=== PATIENT | female | born 1935 | race Caucasian/White ===

== ENCOUNTER 2016-10-05 16:47 | Observation (INO) | payer MEDICARE, BC ==
[2016-10-05 17:35] LABS: ABSOLUTE EOSINOPHILS # (AUTO) 0.1 10^3/uL (0.0-0.6); ABSOLUTE LYMPHOCYTES (AUTO) 1.3 10^3/uL (0.5-4.7); ABSOLUTE MONOCYTES (AUTO) 0.7 10^3/uL (0.1-1.4); ABSOLUTE NEUT (AUTO) 4.3 10^3/uL (1.7-8.2); BASOPHILS % (AUTO) 0.8 % (0-2); EOSINOPHILS % (AUTO) 1.8 % (0-6); HEMATOCRIT 37.9 % (36.0-47.0); HEMOGLOBIN 12.5 g/dL (12.0-15.5); HGB HCT DIFFERENCE -0.4; LYMPHOCYTES % (AUTO) 19.9 % (13-45); MEAN CORPUSCULAR HEMOGLOBIN 29.1 pg (27.0-33.4); MEAN CORPUSCULAR HGB CONC 32.9 g/dL (32.0-36.0); MEAN CORPUSCULAR VOLUME 88 fl (80-97); MONOCYTES % (AUTO) 10.7 % (3-13); RED BLOOD COUNT 4.28 10^6/uL (3.72-5.28); RED CELL DISTRIBUTION WIDTH 14.8 % (11.5-14.0); SEGMENTED NEUTROPHILS % (AUTO) 66.8 % (42-78); WHITE BLOOD COUNT 6.4 10^3/uL (4.0-10.5)
[2016-10-05 17:38] LABS: PARTIAL THROMBOPLASTIN TIME 25.9 SEC (23.5-35.8)
[2016-10-05 17:55] LABS: ALANINE AMINOTRANSFERASE 29 U/L (9-52); ALBUMIN 3.6 g/dL (3.5-5.0); ALKALINE PHOSPHATASE 76 U/L (38-126); ANION GAP 6 (5-19); ASPARTATE AMINO TRANSFERASE 26 U/L (14-36); BILIRUBIN,TOTAL 0.4 mg/dL (0.2-1.3); BLOOD UREA NITROGEN 18 mg/dL (7-20); CALCIUM 9.5 mg/dL (8.4-10.2); CARBON DIOXIDE 30 mmol/L (22-30); CHLORIDE 102 mmol/L (98-107); CREATINE KINASE 54 U/L (30-135); CREATININE RESULT 0.93 mg/dL (0.52-1.25); GLUCOSE 81 mg/dL (75-110); POTASSIUM 4.4 mmol/L (3.6-5.0); SODIUM 138.3 mmol/L (137-145); TOTAL PROTEIN 6.4 g/dL (6.3-8.2)
[2016-10-05 18:06] LABS: CREATINE KINASE MB 1.61 ng/mL (<4.55)
[2016-10-05 18:07] LABS: TROPONIN I < 0.012 ng/mL
--- NOTE | 2016-10-05 18:07 | ER Document Report ---
ED General - General Mode of Arrival: Wheelchair Information source: Relative - Daughter Cannot obtain history due to: Other - Primary progressive aphasia TRAVEL OUTSIDE OF THE [place] IN LAST 30 DAYS: No - HPI Patient complains to provider of: Weakness Onset: This morning Onset/Duration: Sudden, Persistent Associated symptoms: Slow to respond, Weakness <CHINMAY ERNANDEZ - Last Filed: 10/05/16 22:22> <FITZ BEARDEN - Last Filed: 10/10/16 13:16> - General Chief Complaint: Weakness Stated Complaint: WEAKNESS Notes: Patient is a 81-year-old female presenting to the emergency department accompanied by her daughter is concerned that the patient has become very weak and lethargic. Patient's daughter states that this began this morning when the patient was being helped to the restroom, the patient's legs "turned to Jell-O" and she went to the ground. Patient's daughter states that there was no injury because she was wearing a gait belt. 5 years ago, patient was diagnosed with primary progressive aphasia. 15 months ago, patient fell down the stairs and injured her kidneys, but there were no broken bones. Since then, the patient has not been able to live on her own, so she lives with patient's daughter. Patient is able to say yes and no with her hands. Patient makes the hand motion yes when asked if she has blurred vision. Patient's daughter states that the patient was recently treated for UTI approximately one month ago. (CHINMAY ERNANDEZ) - Related Data Allergies/Adverse Reactions: No Known Allergies Allergy (Unverified 05/08/16 17:03) Home Medications: Current Home Medications Albuterol Sulfate [Ventolin HFA MDI 18 GM] 2 puff IH Q4HP PRN 10/06/16 [History] Amlodipine Besylate [Norvasc 5 mg Tablet] 5 mg PO DAILY 10/06/16 [History] Aspirin [Adult Low Dose Aspirin EC] 81 mg PO DAILY 10/06/16 [History] Budesonide/Formoterol Fumarate [Symbicort HFA 160-4.5 mcg Inhaler 6 gm] 2 puff IH Q12 10/06/16 [History] Cetirizine HCl [Zyrtec 10 mg Tablet] 1 tab PO DAILY 10/06/16 [History] Citalopram Hydrobromide [Celexa 10 mg Tablet] 30 mg PO DAILY 10/06/16 [History] Mirabegron [Myrbetriq] 50 mg PO DAILY 10/06/16 [History] Telmisartan [Micardis 80 mg Tablet] 80 mg PO DAILY 10/06/16 [History] Past Medical History - General Information source: Patient, Relative - daughter, [facility] Records - Social History Smoking Status: Unknown if Ever Smoked Frequency of alcohol use: None Drug Abuse: None Lives with: Family Family History: Reviewed & Not Pertinent, Hypertension, Malignancy - Breast cancer - Past Medical History Cardiac Medical History: Reports: Hx Hypertension Pulmonary Medical History: Reports: Hx COPD Neurological Medical History: Reports: Other - Primary aggressive aphasia Past Surgical History: Reports: Hx Appendectomy, Hx Hysterectomy, Hx Tonsillectomy <CHINMAY ERNANDEZ - Last Filed: 10/05/16 22:22> Review of Systems - Review of Systems -: Yes ROS unobtainable due to patient's medical condition - Patient unable to speak due to primary progressive aphasia. <CHINMAY ERNANDEZ - Last Filed: 10/05/16 22:22> Physical Exam - General General appearance: Appears well, Alert - HEENT Head: Normocephalic, Atraumatic Eyes: Normal Pupils: PERRL - Respiratory Respiratory status: No respiratory distress Chest status: Nontender Breath sounds: Normal Chest palpation: Normal - Cardiovascular Rhythm: Regular Heart sounds: Normal auscultation Murmur: No - Abdominal Inspection: Normal Distension: No distension Bowel sounds: Normal Tenderness: Nontender Organomegaly: No organomegaly - Back Back: Normal, Nontender - Extremities General upper extremity: Normal inspection, Nontender, Normal color, Normal temperature General lower extremity: Nontender, Normal color. No: Normal strength, Normal weight bearing - Neurological Neuro grossly intact: No - Cannot track with eyes. Dx Primary Progressive Aphasia - 5 years ago. [place] Coma Scale Eye Opening: Spontaneous [place] Coma Scale Verbal: None - Consistent with diagnosis of Primary Aggressive Aphasia [place] Coma Scale Motor: Obeys Commands [place] Coma Scale Total: 11 Speech: Expressive aphasia Motor strength normal: LUE, RUE. No: LLE, RLE Additional motor exam normals: Equal olive grader - Psychological Associated symptoms: Normal affect, Normal mood - Skin Skin Temperature: Warm Skin Moisture: Dry Skin Color: Normal <CHINMAY ERNANDEZ - Last Filed: 10/05/16 22:22> Course - Laboratory Result Diagrams: 10/05/16 17:25 10/05/16 17:25 - Consults Sebastian Time consulted: 21:10 <CHINMAY ERNANDEZ - Last Filed: 10/05/16 22:22> - Laboratory Result Diagrams: 10/06/16 04:30 10/06/16 04:30 <FITZ BEARDEN - Last Filed: 10/10/16 13:16> - Re-evaluation Re-evalutation: 10/05/16 21:32 I personally performed the services described in the documentation, reviewed and edited the documentation which was dictated to my scribe in my presence, and it accurately records my words and actions. Patient presents to the emergency Department chief complaint of weakness. Daughter which cares for at home says she is able to get around on her own account with walker no difficulty up until today she could not move her legs and would've fallen if a window been there to catch her. She said she's not sure whether she's had a stroke or not patient has progressive aphasia which is been diagnosed by a neurologist but states that she's not had a CVA in the past. Patient is aphasic she has left lower extremity weakness slightly worse than right lower extremity weakness no other neurological deficits. Patient is unable to get up and walk like she has been able to in the past. CT is negative that she may have a TIA. She'll have a urinary tract infection which we've treated. Go ahead and admit her to the hospital further evaluation. (FITZ BEARDEN) - Vital Signs Vital signs: Temp Pulse Resp BP Pulse Ox 98.1 F 68 16 170/63 H 98 10/07/16 14:26 10/07/16 14:26 10/07/16 14:26 10/07/16 14:26 10/07/16 14:26 (CHINMAY ERNANDEZ) (FITZ BEARDEN) - Laboratory Laboratory results interpreted by me: 10/05/16 10/05/16 10/05/16 17:25 17:25 19:25 RDW 14.8 H Est GFR (Non-Af Amer) 58 L Ur Leukocyte Esterase MODERATE H Urine Ascorbic Acid 40 H (CHINMAY ERNANDEZ) (FITZ BEARDEN) - Consults Sebastian Reason for consultation: 10/05/16 21:12 Attempted to consult, waiting on return phone call. (CHINMAY ERNANDEZ) Discharge <CHINMAY ERNANDEZ - Last Filed: 10/05/16 22:22> - Discharge Admitting Provider: Hospitalist Unit Admitted: Telemetry <FITZ BEARDEN - Last Filed: 10/10/16 13:16> - Discharge Clinical Impression: TIA (transient ischemic attack) Qualifiers: Transient cerebral ischemia type: unspecified Qualified Code(s): G45.9 - Transient cerebral ischemic attack, unspecified UTI (urinary tract infection) Qualifiers: Urinary tract infection type: acute cystitis Hematuria presence: without hematuria Qualified Code(s): N30.00 - Acute cystitis without hematuria Condition: Fair Disposition: ADMITTED INPATIENT Scribe Documentation - Scribe Written by Scribe:: Chinmay Ernandez 10/05/2016 1807 acting as scribe for :: Russell <CHINMAY ERNANDEZ - Last Filed: 10/05/16 22:22>
[2016-10-05 19:42] LABS: APPEARANCE,URINE SLIGHTLY-CLOUDY; BILIRUBIN,URINE NEGATIVE (NEGATIVE); GLUCOSE, URINE NEGATIVE (NEGATIVE); KETONES,URINE NEGATIVE (NEGATIVE); LEUKOCYTE ESTERASE,URINE MODERATE (NEGATIVE); NITRITE,URINE NEGATIVE (NEGATIVE); PROTEIN,URINE NEGATIVE (NEGATIVE); URINE SPECIFIC GRAVITY 1.009; UROBILINOGEN,URINE NEGATIVE mg/dL (<2.0)
[2016-10-05] MEDS ORDERED: CEFTRIAXONE INJ 1000 MG VIAL IV ONE (19:58)
[2016-10-05] MEDS ORDERED: ALBUTEROL SULFATE HFA (90 MCG/PUFF) 8 GM MDI (1 MDI/ER DISP) IH PRN (21:32)
[2016-10-05] MEDS ORDERED: NORMAL SALINE 1000 ML 1,000 ML IV ONE (21:39)
--- NOTE | 2016-10-05 21:45 | EKG REPORT ---
SEVERITY:- OTHERWISE NORMAL ECG - SINUS RHYTHM BORDERLINE RIGHT AXIS DEVIATION : Confirmed by: Alexander Brady 05-Oct-2016 21:44:09
[2016-10-05] MEDS ORDERED: ALBUTEROL SULFATE HFA (90 MCG/PUFF) 200 PUFF/8.5 GM MDI IH PRN (21:46)
[2016-10-05] MEDS ORDERED: ALPRAZOLAM 0.25 MG TABLET PO SCH (22:00)
[2016-10-05] MEDS ORDERED: ALPRAZOLAM 0.5 MG TABLET PO SCH (22:00)
[2016-10-05] MEDS ORDERED: HEPARIN SOD (PORCINE) 5,000 UNIT/ML 1 ML SYRINGE SUBCUT SCH (22:00)
[2016-10-05] MEDS ORDERED: ATORVASTATIN CALCIUM 20 MG TABLET PO SCH (22:45)
[2016-10-06] MEDS ORDERED: ALPRAZOLAM 0.5 MG TABLET PO SCH (00:15)
[2016-10-06] MEDS: BUDESONIDE/FORMOTEROL 160-4.5 MCG 60 PUFF/6 GM MDI IH SCH ×3 (00:23→21:41)
[2016-10-06] MEDS: HEPARIN SOD (PORCINE) 5,000 UNIT/ML 1 ML SYRINGE SUBCUT SCH ×3 (00:23→21:41)
--- NOTE | 2016-10-06 04:17 | PDOC H&P ---
History of Present Illness Admission Date/PCP: 10/05/16 21:35 Patient complains of: Weakness History of Present Illness: PEPE ALLAN is a 81 year old female with a past medical history of hypertension, COPD and dementia with progressive aphasia. Who essentially requires 100% care from her daughter at home who is noted to have exceptional lower extremity weakness transferring from bed to bathroom with a gait belt. There is no fall, fever, complaint of pain or evidence of shortness of breath and brought to the emergency room for evaluation. Where she has an unremarkable workup with exception to a urinalysis with leukocyte esterase but only 9 WBCs and referred to the hospitalist for observation. Past Medical History Cardiac Medical History: Reports: Hypertension Pulmonary Medical History: Reports: Chronic Obstructive Pulmonary Disease (COPD) Neurological Medical History: Reports: Other - Primary aggressive aphasia Psychiatric Medical History: Reports: Depression Past Surgical History Past Surgical History: Reports: Appendectomy, Hysterectomy, Tonsillectomy Social History Information Source: Relative Lives with: Family Smoking Status: Former Smoker Frequency of Alcohol Use: None Hx Recreational Drug Use: No Drugs: None Hx Prescription Drug Abuse: No - Advance Directive Resuscitation Status: Do Not Resuscitate Family History Family History: Hypertension, Malignancy - Breast cancer Parental Family History Reviewed: Yes Children Family History Reviewed: Yes Sibling(s) Family History Reviewed.: Yes Medication/Allergy Home Medications: Albuterol Sulfate [Ventolin Hfa] 2 puff IH Q4HP PRN 10/05/16 Alprazolam [Xanax 0.25 mg Tablet] 0.5 mg PO QHS 10/05/16 Amlodipine Besylate [Norvasc 5 mg Tablet] 5 mg PO DAILY 10/05/16 Aspirin [Lo-Dose Aspirin EC] 81 mg PO DAILY 10/05/16 Budesonide/Formoterol Fumarate [Symbicort HFA 160-4.5 mcg Inhaler 6 gm] 2 puff IH Q12 10/05/16 Cetirizine HCl [Zyrtec 10 mg Tablet] 10 mg PO DAILY 10/05/16 Citalopram Hydrobromide [Celexa] 30 mg PO DAILY 10/05/16 Mirabegron [Myrbetriq] 50 mg PO DAILY 10/05/16 Telmisartan [Micardis 80 mg Tablet] 80 mg PO DAILY 10/05/16 Allergies/Adverse Reactions: No Known Allergies Allergy (Unverified 05/08/16 17:03) Review of Systems ROS unobtainable: Due to mental status Physical Exam Vital Signs: Temp Pulse Resp BP Pulse Ox 98.4 F 70 20 122/42 L 100 10/06/16 01:06 10/06/16 02:00 10/06/16 01:06 10/06/16 01:06 10/06/16 01:06 Intake & Output 10/04/16 10/05/16 10/06/16 11:59 11:59 11:59 Weight 65.9 kg General appearance: PRESENT: no acute distress, well-developed Head exam: PRESENT: atraumatic, normocephalic Eye exam: PRESENT: conjunctiva pink, EOMI, PERRLA. ABSENT: scleral icterus Ear exam: PRESENT: normal external ear exam Mouth exam: PRESENT: moist, tongue midline Neck exam: ABSENT: carotid bruit, JVD, lymphadenopathy, thyromegaly Respiratory exam: PRESENT: clear to auscultation analilia. ABSENT: rales, rhonchi, wheezes Cardiovascular exam: PRESENT: RRR. ABSENT: diastolic murmur, rubs, systolic murmur Pulses: PRESENT: normal dorsalis pedis pul Vascular exam: PRESENT: normal capillary refill GI/Abdominal exam: PRESENT: normal bowel sounds, soft. ABSENT: distended, guarding, mass, organolmegaly, rebound, tenderness Rectal exam: PRESENT: deferred Extremities exam: PRESENT: full ROM. ABSENT: calf tenderness, clubbing, pedal edema Musculoskeletal exam: PRESENT: full ROM Neurological exam: PRESENT: alert, awake, CN II-XII grossly intact, aphasic. ABSENT: motor sensory deficit Psychiatric exam: PRESENT: appropriate affect, normal mood. ABSENT: homicidal ideation, suicidal ideation Skin exam: PRESENT: dry, intact, warm. ABSENT: cyanosis, rash Results Impressions: Chest X-Ray 10/05/16 16:58 IMPRESSION: NO ACUTE RADIOGRAPHIC FINDING IN THE CHEST. Head CT 10/05/16 16:58 IMPRESSION: No acute intracranial abnormality. Pertinent positive or negative findings of the imaging study reported as a CRITICAL EXAM to ER PROVIDER at17:09 on 10/05/2016. Category of Critical Exam: Stroke alert Assessment & Plan - Diagnosis (1) UTI (urinary tract infection) Qualifiers: Urinary tract infection type: acute cystitis Hematuria presence: without hematuria Qualified Code(s): N30.00 - Acute cystitis without hematuria Plan: Not really clear as there is no fever no leukocytosis or significant white blood cell count on urinalysis, she has received empiric Rocephin I will follow- up CBC and urine culture (2) Dementia Qualifiers: Dementia type: unspecified type Dementia behavioral disturbance: without behavioral disturbance Qualified Code(s): F03.90 - Unspecified dementia without behavioral disturbance Is this a current diagnosis for this admission?: YesPlan: Supportive measures (3) Generalized weakness Is this a current diagnosis for this admission?: YesPlan: Strongly suspect this is related underlying dementia with deconditioning and given her comorbidity I cannot justify a CVA workup as the findings would not change treatment. She is empirically placed on aspirin and statin. Consideration of group home placement as I'm unclear if she is able to return to independent setting and discharge planning is consulted. - Time Time Spent: 30 to 50 Minutes
[2016-10-06 05:34] LABS: ABSOLUTE EOSINOPHILS # (AUTO) 0.2 10^3/uL (0.0-0.6); ABSOLUTE LYMPHOCYTES (AUTO) 1.6 10^3/uL (0.5-4.7); ABSOLUTE MONOCYTES (AUTO) 0.6 10^3/uL (0.1-1.4); ABSOLUTE NEUT (AUTO) 3.5 10^3/uL (1.7-8.2); BASOPHILS % (AUTO) 0.8 % (0-2); HEMATOCRIT 34.2 % (36.0-47.0); HEMOGLOBIN 11.3 g/dL (12.0-15.5); HGB HCT DIFFERENCE -0.3; LYMPHOCYTES % (AUTO) 26.7 % (13-45); MEAN CORPUSCULAR HEMOGLOBIN 29.2 pg (27.0-33.4); MEAN CORPUSCULAR HGB CONC 32.9 g/dL (32.0-36.0); MEAN CORPUSCULAR VOLUME 89 fl (80-97); MONOCYTES % (AUTO) 10.8 % (3-13); RED BLOOD COUNT 3.86 10^6/uL (3.72-5.28); RED CELL DISTRIBUTION WIDTH 14.8 % (11.5-14.0); SEGMENTED NEUTROPHILS % (AUTO) 58.7 % (42-78); WHITE BLOOD COUNT 5.9 10^3/uL (4.0-10.5)
[2016-10-06 05:49] LABS: ANION GAP 5 (5-19); BLOOD UREA NITROGEN 16 mg/dL (7-20); CALCIUM 8.9 mg/dL (8.4-10.2); CARBON DIOXIDE 28 mmol/L (22-30); CHLORIDE 106 mmol/L (98-107); CREATININE RESULT 0.76 mg/dL (0.52-1.25); GLUCOSE 72 mg/dL (75-110); SODIUM 138.6 mmol/L (137-145)
[2016-10-06] MEDS ORDERED: DEXTROSE 5%-1/2 NORMAL SALINE 1,000 ML IV ONE (07:00)
[2016-10-06] MEDS ORDERED: LACTULOSE SYRUP 20 GM/30 ML UDCUP PO ONE (07:00)
[2016-10-06] MEDS ORDERED: (PENDING PHARMACY ID) (Telmisartan [Micardis 80 Mg Tablet] 80 MG) PO SCH (10:00)
[2016-10-06] MEDS: LOSARTAN POTASSIUM 50 MG TABLET PO SCH (10:48)
[2016-10-06] MEDS: DOCUSATE SODIUM 100 MG CAPSULE PO SCH ×2 (10:48→17:11)
[2016-10-06] MEDS: ASPIRIN 81 MG TABLET, ENT COATED PO SCH (10:49)
[2016-10-06] MEDS: CITALOPRAM HYDROBROMIDE 20 MG TABLET PO SCH (10:49)
[2016-10-06] MEDS: CETIRIZINE 10 MG TABLET PO SCH (10:49)
[2016-10-06] MEDS: AMLODIPINE BESYLATE 5 MG TABLET PO SCH (10:49)
--- NOTE | 2016-10-06 16:32 | PDOC PROGRESS REPORT ---
Subjective Progress Note for:: 10/06/16 Subjective:: Patient it was admitted to a yesterday because of inability to ambulate She usually is quite debilitated but is able to ambulate with help and walker She is aphasic She is cared for at home by her family Since her admission there was no change in her mental status, and a PT evaluation is at this time pending Patient is nonverbal and although she establishes good eye contact does not communicate She is able to follow commands Physical Exam Vital Signs: Temp Pulse Resp BP Pulse Ox 98.1 F 66 18 155/60 H 100 10/06/16 12:00 10/06/16 12:00 10/06/16 12:00 10/06/16 12:00 10/06/16 12:00 Intake & Output 10/05/16 10/06/16 10/07/16 00:59 00:59 00:59 Intake Total 1000 Output Total 100 Balance 900 Weight 65.9 kg 69.3 kg General appearance: PRESENT: no acute distress, cooperative Head exam: PRESENT: atraumatic, normocephalic Eye exam: PRESENT: conjunctiva pink, EOMI, PERRLA. ABSENT: scleral icterus Respiratory exam: PRESENT: clear to auscultation analilia. ABSENT: rales, rhonchi, wheezes Cardiovascular exam: PRESENT: RRR. ABSENT: diastolic murmur, rubs, systolic murmur Pulses: PRESENT: normal carotid pulses GI/Abdominal exam: PRESENT: normal bowel sounds, soft. ABSENT: distended, guarding, mass, organolmegaly, rebound, tenderness Neurological exam: PRESENT: awake, CN II-XII grossly intact Skin exam: PRESENT: dry, intact, warm. ABSENT: cyanosis, rash Results Laboratory Results: 10/06/16 04:30 10/06/16 04:30 10/06/16 10/06/16 10/06/16 04:30 04:30 04:30 WBC 5.9 RBC 3.86 Hgb 11.3 L Hct 34.2 L MCV 89 MCH 29.2 MCHC 32.9 RDW 14.8 H Plt Count 184 Seg Neutrophils % 58.7 Lymphocytes % 26.7 Monocytes % 10.8 Eosinophils % 3.0 Basophils % 0.8 Absolute Neutrophils 3.5 Absolute Lymphocytes 1.6 Absolute Monocytes 0.6 Absolute Eosinophils 0.2 Absolute Basophils 0.0 Sodium 138.6 Potassium 4.0 Chloride 106 Carbon Dioxide 28 Anion Gap 5 BUN 16 Creatinine 0.76 Est GFR ( Amer) > 60 Est GFR (Non-Af Amer) > 60 Glucose 72 L Calcium 8.9 Vitamin B12 385.0 Impressions: Chest X-Ray 10/05/16 16:58 IMPRESSION: NO ACUTE RADIOGRAPHIC FINDING IN THE CHEST. Head CT 10/05/16 16:58 IMPRESSION: No acute intracranial abnormality. Pertinent positive or negative findings of the imaging study reported as a CRITICAL EXAM to ER PROVIDER at17:09 on 10/05/2016. Category of Critical Exam: Stroke alert Assessment & Plan - Diagnosis (1) Unable to ambulate Is this a current diagnosis for this admission?: YesPlan: PT evaluation will be obtained Patient was scheduled for MRI head no contrast to exclude an acute CVA A CT of the brain was normal (2) Generalized weakness Is this a current diagnosis for this admission?: YesPlan: May be secondary to UTI Continue ceftriaxone IV (3) UTI (urinary tract infection) Qualifiers: Urinary tract infection type: acute cystitis Hematuria presence: without hematuria Qualified Code(s): N30.00 - Acute cystitis without hematuria Is this a current diagnosis for this admission?: YesPlan: Culture was negative but the UA was very much suggestive of an infection We will treat the patient with 5 days of antibiotics (4) Aphasia Is this a current diagnosis for this admission?: YesPlan: Unchanged as per the family - Time Time Spent with patient: We will keep the patient overnight pending results of physical therapy evaluation and MRI Disposition admit to be made tomorrow Time Spent with patient: 15-24 minutes
[2016-10-06] MEDS ORDERED: LORAZEPAM INJ 2 MG/1 ML VIAL ONE (17:49)
[2016-10-06] MEDS ORDERED: CEFTRIAXONE 1 GM/D5W RTU 1 GM/50 ML RTUPB IV SCH (18:00)
[2016-10-06] MEDS ORDERED: LORAZEPAM INJ 2 MG/1 ML VIAL IV SCH (18:30)
[2016-10-06] MEDS ORDERED: ALPRAZOLAM 0.5 MG TABLET PO ONE (21:35)
[2016-10-07] MEDS: HEPARIN SOD (PORCINE) 5,000 UNIT/ML 1 ML SYRINGE SUBCUT SCH (05:17)
[2016-10-07] MEDS: CETIRIZINE 10 MG TABLET PO SCH (09:34)
[2016-10-07] MEDS: LOSARTAN POTASSIUM 50 MG TABLET PO SCH (09:34)
[2016-10-07] MEDS: CITALOPRAM HYDROBROMIDE 20 MG TABLET PO SCH (09:35)
[2016-10-07] MEDS: ASPIRIN 81 MG TABLET, ENT COATED PO SCH (09:35)
[2016-10-07] MEDS: AMLODIPINE BESYLATE 5 MG TABLET PO SCH (09:36)
[2016-10-07] MEDS: BUDESONIDE/FORMOTEROL 160-4.5 MCG 60 PUFF/6 GM MDI IH SCH (09:38)
[2016-10-07] MEDS: DOCUSATE SODIUM 100 MG CAPSULE PO SCH (09:45)
[2016-10-07 12:32] VITALS: BP 170/63
--- NOTE | 2016-10-07 14:31 | PDOC DISCHARGE SUMMARY ---
General - Admit/Disc Date/PCP Admission Date/Primary Care Provider: 10/05/16 21:35 Discharge Date: 10/07/16 - Discharge Diagnosis (1) Unable to ambulate Is this a current diagnosis for this admission?: YesSummary: patient was evaluated by physical therapy "Pt needs min assist with bed mobility and transfers. Pt ambulated 60ft with shuffling, mild unsteady gait noted with cues to increase step height and length in B LE and for sequencing of gait with FWW for safety. Pt will have episodes that B LE will freeze especially when turning and needs mod assist and constant verbal and tactile cues to move B LE and finish task. Will continue to follow for strengthening exercises, transfers and gait training to improve functional mobility. Recommend continued PT upon discharge. " patient was discharged with Home PT 3 times a week (2) Generalized weakness Is this a current diagnosis for this admission?: YesSummary: likely increased debilitation There was no evidence of acute CVA (3) UTI (urinary tract infection) Is this a current diagnosis for this admission?: YesSummary: The UA showed bacteria and wbc's urine culture was negative Patient received 3 dosed of ceftriaxone IV during her hospital stay (4) Progressive aphasia Is this a current diagnosis for this admission?: YesSummary: prior diagnosis no change in mental status during her hospital stay (5) HTN (hypertension) Is this a current diagnosis for this admission?: YesSummary: increased Norvasc to 5 mg po bid - Additional Information Resuscitation Status: Do Not Resuscitate Discharge Diet: As Tolerated Discharge Activity: Activity As Tolerated Home Medications: Albuterol Sulfate [Ventolin HFA MDI 18 GM] 2 puff IH Q4HP PRN 10/06/16 Amlodipine Besylate [Norvasc 5 mg Tablet] 5 mg PO DAILY 10/06/16 Aspirin [Adult Low Dose Aspirin EC] 81 mg PO DAILY 10/06/16 Budesonide/Formoterol Fumarate [Symbicort HFA 160-4.5 mcg Inhaler 6 gm] 2 puff IH Q12 10/06/16 Cetirizine HCl [Zyrtec 10 mg Tablet] 1 tab PO DAILY 10/06/16 Citalopram Hydrobromide [Celexa 10 mg Tablet] 30 mg PO DAILY 10/06/16 Mirabegron [Myrbetriq] 50 mg PO DAILY 10/06/16 Telmisartan [Micardis 80 mg Tablet] 80 mg PO DAILY 10/06/16 Amlodipine Besylate [Norvasc 5 mg Tablet] 5 mg PO BID #60 tablet 10/07/16 Olanzapine [Zyprexa 2.5 mg Tablet] 0.5 tab PO QHS #30 tablet 10/07/16 History of Present Illness Patient complains of: inability to walk History of Present Illness: PEPE ALLAN is a 81 year old female with a past medical history of hypertension, COPD and dementia with progressive aphasia. Who essentially requires 100% care from her daughter at home who is noted to have exceptional lower extremity weakness transferring from bed to bathroom with a gait belt. There is no fall, fever, complaint of pain or evidence of shortness of breath and brought to the emergency room for evaluation. Where she has an unremarkable workup with exception to a urinalysis with leukocyte esterase but only 9 WBCs and referred to the hospitalist for observation. CT performed in ED was negative Patient was admitted for observation for further evaluation Hospital Course Hospital Course: see above Physical Exam Vital Signs: Temp Pulse Resp BP Pulse Ox 98.1 F 68 16 170/63 H 98 10/07/16 14:26 10/07/16 14:26 10/07/16 14:26 10/07/16 14:26 10/07/16 14:26 Intake & Output 10/06/16 10/07/16 10/08/16 00:59 00:59 00:59 Intake Total 3003 5 Output Total 100 Balance 2903 5 Weight 65.9 kg 69.3 kg 72.2 kg General appearance: PRESENT: well-nourished - pale looks chronically ill, other Head exam: PRESENT: atraumatic, normocephalic Eye exam: PRESENT: conjunctiva pink, EOMI, PERRLA. ABSENT: scleral icterus Neck exam: ABSENT: carotid bruit, JVD, lymphadenopathy, thyromegaly Respiratory exam: PRESENT: clear to auscultation analilia. ABSENT: rales, rhonchi, wheezes GI/Abdominal exam: PRESENT: normal bowel sounds, soft. ABSENT: distended, guarding, mass, organolmegaly, rebound, tenderness Extremities exam: PRESENT: full ROM. ABSENT: calf tenderness, clubbing, pedal edema Neurological exam: PRESENT: awake, CN II-XII grossly intact Skin exam: PRESENT: dry, intact, warm. ABSENT: cyanosis, rash Results Laboratory Results: 10/06/16 04:30 10/06/16 04:30 10/05/16 10/05/16 10/06/16 17:25 19:25 04:30 Vitamin B12 385.0 TSH 1.57 Ur Leukocyte Esterase MODERATE H Urine WBC (Auto) 9 Urine RBC (Auto) 5 Squamous Epi Cells Auto 22 Urine Ascorbic Acid 40 H Impressions: Chest X-Ray 10/05/16 16:58 IMPRESSION: NO ACUTE RADIOGRAPHIC FINDING IN THE CHEST. Head CT 10/05/16 16:58 IMPRESSION: No acute intracranial abnormality. Pertinent positive or negative findings of the imaging study reported as a CRITICAL EXAM to ER PROVIDER at17:09 on 10/05/2016. Category of Critical Exam: Stroke alert Head MRI 10/06/16 10:35 IMPRESSION: ATROPHY AND CHRONIC MICRO-VASCULAR ISCHEMIC CHANGES. OTHERWISE NORMAL MRI OF THE BRAIN WITHOUT INTRAVENOUS GADOLINIUM CONTRAST. Plan Discharge Plan: added to present list of meds small doses of Zyprexa at night as patient is usually up most of the night
== END 2016-10-07 15:07 | disposition home health service (06) ==
LOC: ER 16:47 → EH 21:35 → INTOOBSV 21:35 → EH 21:48 → UNDOADMIN 21:48 → EH 22:42 → UNDOADMIN 22:42 → 4N 10-06 01:05
PROVIDERS: ADMIT Internal Medicine; ATTEND Internal Medicine
PROC: 3E033GC Introduction of Other Therapeutic Substance into Peripheral Vein, Percutaneous Approach (ICD-10-PCS; principal; 2016-10-05)
DX: N39.0 Urinary tract infection, site not specified (principal); R26.2 Difficulty in walking, not elsewhere classified; R53.1 Weakness; R47.01 Aphasia; I10 Essential (primary) hypertension; J44.9 Chronic obstructive pulmonary disease, unspecified; F03.90 Unspecified dementia, unspecified severity, without behavioral disturbance, psychotic disturbance, mood disturbance, and anxiety; Z87.891 Personal history of nicotine dependence; Z66 Do not resuscitate
CPT/HCPCS: 93005; 99285; 96365; 36415 ×2; 87040; 87086; 82553; 82607; 82550; 84443; 85025 ×2; 85610; 85730; 80048; 80053; 81001; 84484; 70551; 71010; 70450; 93010; 97163; G0378 ×2; A9270 ×13; J1644 ×2; J3490; J2060; J0696 ×2; J7030; G8978; G8979